=== PATIENT | female | born 1945 | race Hispanic/Latino ===

== ENCOUNTER 2019-02-25 20:20 | Inpatient (IN) | payer MEDICARE ==
[~2019-02-25] VITALS: Ht 160 cm; Wt 82.6 kg
[2019-02-25] MEDS ORDERED: ASPIRIN 325MG EC TAB 325 MG TABLET.DR PO ONE (20:32)
[2019-02-25] MEDS ORDERED: FAMOTIDINE 20MG TAB 20 MG TAB ONE (21:19)
[2019-02-25 21:34] LABS: BASOPHILS % (AUTO) 1.1 % (0.0-5.0); HEMATOCRIT 37.4 % (36-48); LYMPHOCYTES % (AUTO) 28.6 % (21.0-51.0); MEAN CORPUSCULAR HEMOGLOBIN 33.9 pg (27.0-33.0); MEAN CORPUSCULAR HGB CONC 34.6 g/dL (32.0-36.0); MONOCYTES % (AUTO) 6.5 % (3.0-13.0); NEUTROPHILS % (AUTO) 60.8 % (40.0-77.0); PLATELET COUNT (AUTO) 178 K/uL (130-400); RED BLOOD CELL COUNT(AUTO) 3.82 MIL/uL (4.00-5.50); RED CELL DISTRIBUTION WIDTH 13.2 % (11.0-15.5); WHITE BLOOD COUNT (AUTO) 7.8 K/uL (4.8-10.8)
[2019-02-25 21:45] LABS: CREATININE 0.9 mg/dL (0.5-1.5)
[2019-02-25 21:49] LABS: ALBUMIN 3.4 g/dL (3.5-5.0); BILIRUBIN,TOTAL 0.3 mg/dL (0.2-1.0); TOTAL PROTEIN, SERUM 7.2 g/dL (6.0-8.3)
[2019-02-25 23:09] LABS: HEMOGLOBIN A1C 5.9 % (4.0-6.0)
[2019-02-25 23:10] LABS: CHOLESTEROL 326 mg/dL (<200); HDL CHOLESTEROL 36 mg/dL (35-85); LDL DIRECT 192 mg/dL (0-99); TRIGLYCERIDES 362 mg/dL (30-200)
[2019-02-25] MEDS ORDERED: HYDRALAZINE HCL 20 MG/ML VIAL IV PRN (23:30)
[2019-02-25] MEDS: NITROGLYCERIN 1GM/1 INCH PACKET TD SCH (23:30)
[2019-02-26] VITALS (7 sets, daily range): BP systolic 131–158; BP diastolic 72–85
--- NOTE | 2019-02-26 00:55 | NUR ---
ADMISSION NOTE: ADMITTED TO FLOOR VIA STRETCHER FROM ER. AOX4. VERY COOPERATIVE AND RESPONSIVE. DENIES FEELING OF DISCOMFORT AT THIS TIME. PLACED IN BED COMFORTABLY. ADVISED TO BE ON BR WITH BRP. VS CHECKED AND RECORDED. ASSESSMENT DONE.( SEE CPOE FLOW CHART FOR FULL ASSESSMENT) . DAUGHTER AND SON WAS WITH THE PT. ORIENTED TO ROOM AND USE OF CALL LIGHT. POLICIES AND PROCEDURES EXPLAINED. VERBALIZED UNDERSTANDING. PLAN OF CARE INITIATED. MAINTAINED ON NPO ORDERED. HOOKED TO TELE WITH SR RESULT. FOR CARDIO CONSULT IN AM. MONITORED AND OBSERVED FOR ANY UNUSUALITIES. NEEDS ATTENDED AND CARED FOR. NO APPARENT DISTRESS NOTED.
[2019-02-26] MEDS ORDERED: LOSA50TA64 PO (01:19)
[2019-02-26 05:23] LABS: BASOPHILS % (AUTO) 0.7 % (0.0-5.0); EOSINOPHILS % (AUTO) 2.8 % (0.0-8.0); HEMATOCRIT 38.6 % (36-48); LYMPHOCYTES % (AUTO) 38.3 % (21.0-51.0); MEAN CORPUSCULAR HEMOGLOBIN 33.4 pg (27.0-33.0); MEAN CORPUSCULAR HGB CONC 33.8 g/dL (32.0-36.0); MEAN CORPUSCULAR VOLUME 98.9 fL (79-99); MONOCYTES % (AUTO) 7.6 % (3.0-13.0); NEUTROPHILS % (AUTO) 50.6 % (40.0-77.0); NUCLEATED RED BLOOD CELLS 0.1 % (0.0-0.19); PLATELET COUNT (AUTO) 178 K/uL (130-400); WHITE BLOOD COUNT (AUTO) 7.1 K/uL (4.8-10.8)
[2019-02-26 05:40] LABS: CREATININE 0.7 mg/dL (0.5-1.5); POTASSIUM 3.7 mmol/L (3.5-5.1)
[2019-02-26 05:41] LABS: ALBUMIN 3.4 g/dL (3.5-5.0); BILIRUBIN,TOTAL 0.4 mg/dL (0.2-1.0); TOTAL PROTEIN, SERUM 7.2 g/dL (6.0-8.3)
[2019-02-26] MEDS: NITROGLYCERIN 1GM/1 INCH PACKET TD SCH ×3 (06:32→23:37)
[2019-02-26] MEDS: ASPIRIN 81MG TAB.CHEW PO SCH (08:32)
[2019-02-26] MEDS: FAMOTIDINE/PF 20 MG/2 ML VIAL IV SCH ×2 (08:32→21:14)
[2019-02-26] MEDS: ENOXAPARIN SODIUM 30 MG/0.3 ML SQ SCH (08:33)
[2019-02-26] MEDS ORDERED: ACETAMINOPHEN EXTRA STRENGTH 500 MG TABLET PO PRN (10:15)
[2019-02-26] MEDS ORDERED: ONDANSETRON HCL 4 MG/2 ML VIAL IVP PRN (10:15)
[2019-02-26] MEDS ORDERED: MORPHINE SULFATE 2 MG/ML 1ML SYG IV PRN (10:15)
--- NOTE | 2019-02-26 14:43 | NUR ---
DCP CM met with pt discussed dc plans. Pt is independent prior to admission, lives at home w/daughter. Denies any equipments/services. Feels safe to go back home, daughter able to assist with transportation and neds as necessary. Dc plan to home once stable. CM to cont to follow up. Addendum: 02/26/19 at 1444 by TAMAR MONTERROSO LVN CM Amended: Links added.
--- NOTE | 2019-02-26 15:55 | NUR ---
NITRO PATCH PATIENT REFUSED NITRO PATCH, PATIENT HAS NO CURRENT COMPLAINT OF CHEST PAIN AND PATCH WAS CAUSING HEADACHE. SPOKE WITH DIALYSIS CLINICAL MANAGER MARCUS DANG REGARDING PATCH AND STATED IT WAS OK SINCE SHE HAS NO CHEST PAIN AT THIS TIME.
[2019-02-26] MEDS ORDERED: METOPROLOL TARTRATE 25 MG TAB PO SCH (21:00)
[2019-02-26] MEDS ORDERED: ATORVASTATIN CALCIUM 20 MG TABLET PO SCH (21:00)
[2019-02-27] VITALS (13 sets, daily range): BP systolic 111–159; BP diastolic 63–87
[2019-02-27 04:44] LABS: TROPONIN I 0.06 ng/mL (0.00-0.06)
[2019-02-27] MEDS: NITROGLYCERIN 1GM/1 INCH PACKET TD SCH ×2 (07:45→16:23)
[2019-02-27 08:57] LABS: INR 0.96 (0.85-1.15); PARTIAL THROMBOPLASTIN TIME 24.2 SEC (26.3-35.5); PROTHROMBIN TIME 10.1 SEC (9.6-11.6)
[2019-02-27] MEDS: ASPIRIN 81MG TAB.CHEW PO SCH (09:00)
[2019-02-27] MEDS ORDERED: LOSARTAN 50 MG TABLET PO SCH (09:00)
[2019-02-27] MEDS: ENOXAPARIN SODIUM 30 MG/0.3 ML SQ SCH (09:00)
[2019-02-27] MEDS: METOPROLOL TARTRATE 25 MG TAB PO SCH ×2 (09:00→21:20)
[2019-02-27] MEDS: FAMOTIDINE/PF 20 MG/2 ML VIAL IV SCH ×2 (09:00→21:20)
[2019-02-27] MEDS ORDERED: HEPARIN SODIUM 1000UNIT/ML 10ML VIAL ONE (12:09)
[2019-02-27] MEDS ORDERED: SODIUM BICARB 50MEQ 50ML VIAL ONE (12:09)
[2019-02-27] MEDS ORDERED: LIDOCAINE HCL 2% 20ML ONE (12:10)
[2019-02-27] MEDS ORDERED: NITROGLYCERIN 5 MG/ML 10 ML VIAL IV ONE (12:10)
[2019-02-27] MEDS ORDERED: IOHEXOL 350 MG/ML 100ML INFUS..BTL IV ONE (12:10)
[2019-02-27] MEDS ORDERED: IOHEXOL-350 50ML VIAL IV ONE (12:10)
--- NOTE | 2019-02-27 12:19 | NUR ---
Pt taken down for a LHC at this time, Consent signed, Pt VS stable, Nursing will continue to monitor.
[2019-02-27] MEDS ORDERED: MEPERIDINE-PF 25 MG/ML SYG ONE (12:27)
[2019-02-27] MEDS ORDERED: MIDAZOLAM HCL 1 MG/ML 2ML VIAL ONE (12:28)
[2019-02-27] MEDS ORDERED: LABETALOL HCL 5 MG/ML 20ML VIAL IV ONE (12:43)
[2019-02-27] MEDS ORDERED: ATROPINE SULFATE 0.1 MG/ML 10 ML SYG IVP ONE (12:56)
[2019-02-27] MEDS ORDERED: IOHEXOL-350 75 ML VIAL IV ONE (13:49)
[2019-02-27] MEDS ORDERED: SODIUM CHLORIDE 0.9% 1000ML 1,000 ML IV SCH (14:25)
--- NOTE | 2019-02-27 14:38 | NUR ---
Pt s/p LHC, transfer to post heart cath for appropriate care in room 224. Care endorsed to primary nurse.
[2019-02-27] MEDS ORDERED: ATORVASTATIN CALCIUM 40 MG TABLET PO SCH (21:00)
[2019-02-27] MEDS ORDERED: CEFAZOLIN SODIUM 1 GM VIAL IVP PRN (21:45)
[2019-02-28] VITALS (26 sets, daily range): BP systolic 96–229; BP diastolic 52–118
[2019-02-28] MEDS: NITROGLYCERIN 1GM/1 INCH PACKET TD SCH ×2 (00:12→07:30)
[2019-02-28 03:49] LABS: HEMATOCRIT 35.9 % (36-48); MEAN CORPUSCULAR HEMOGLOBIN 33.8 pg (27.0-33.0); MEAN CORPUSCULAR HGB CONC 34.6 g/dL (32.0-36.0); MEAN CORPUSCULAR VOLUME 97.6 fL (79-99); PLATELET COUNT (AUTO) 177 K/uL (130-400); RED BLOOD CELL COUNT(AUTO) 3.67 MIL/uL (4.00-5.50); WHITE BLOOD COUNT (AUTO) 7.7 K/uL (4.8-10.8)
[2019-02-28 04:04] LABS: HEMOGLOBIN A1C 5.9 % (4.0-6.0)
[2019-02-28 04:05] LABS: INR 0.93 (0.85-1.15); PARTIAL THROMBOPLASTIN TIME 23.9 SEC (26.3-35.5); PROTHROMBIN TIME 9.8 SEC (9.6-11.6)
[2019-02-28 04:13] LABS: CREATININE 0.9 mg/dL (0.5-1.5); POTASSIUM 3.8 mmol/L (3.5-5.1)
[2019-02-28 04:16] LABS: B-TYPE NATRIURETIC PEPTIDE 10 pg/mL (0-100)
--- NOTE | 2019-02-28 07:30 | NUR ---
AM ASSESSMENT PT LAYING IN BED, HOB ELEVATED 30 DEGREES, RESTING. FAMILY @ BEDSIDE. A/O X 3. NO SOB. NO DISTRESS NOTED. DENIES CHEST PAIN OR DISCOMFORT. DENIES PALPITATIONS. TELE: 80s. DENIES N/V AND/OR DIARRHEA. NPO STATUS REINFORCED. PT TO HAVE CABG TODAY. INSTRUCTED TO CALL FOR ASSISTANCE. CALL LEATHA W/IN REACH.
[2019-02-28] MEDS: METOPROLOL TARTRATE 25 MG TAB PO SCH (08:01)
[2019-02-28] MEDS: FAMOTIDINE/PF 20 MG/2 ML VIAL IV SCH ×2 (08:01→22:32)
[2019-02-28] MEDS: ASPIRIN 81MG TAB.CHEW PO SCH (08:01)
[2019-02-28] MEDS ORDERED: REGADENOSON 0.4 MG/5 ML PF SYG IVP SCH (08:30)
[2019-02-28] MEDS ORDERED: AMINOCAPROIC ACID 250 MG/ML 20 ML VIAL IV ONE (11:53)
[2019-02-28] MEDS ORDERED: ESMOLOL HCL 10 MG/ML 10 ML VIAL ONE (11:53)
[2019-02-28] MEDS ORDERED: SODIUM BICARB 50MEQ 50ML VIAL ONE (11:53)
[2019-02-28] MEDS ORDERED: PROPOFOL 10 MG/ML 20ML VIAL IV ONE (11:53)
[2019-02-28] MEDS ORDERED: PROTAMINE SULFATE 10 MG/ML 25ML VIAL IV ONE (11:53)
[2019-02-28] MEDS ORDERED: EPINEPHRINE 1 MG/ML AMPULE ONE (11:53)
[2019-02-28] MEDS ORDERED: LIDOCAINE PF 2% 5ML ABBOJECT ONE (11:53)
[2019-02-28] MEDS ORDERED: NOREPINEPHRINE BITARTRATE 1 MG/1 ML ML IV ONE (11:53)
[2019-02-28] MEDS ORDERED: HEPARIN SODIUM 1000UNIT/ML 10ML VIAL ONE ×2 (11:53→15:28)
[2019-02-28] MEDS ORDERED: MIDAZOLAM HCL 1 MG/ML 2ML VIAL ONE (11:53)
[2019-02-28] MEDS ORDERED: ROCURONIUM 10MG/1ML SYR 10 MG/ML ML ONE (11:54)
[2019-02-28] MEDS ORDERED: FENTANYL CITRATE PF 50 MCG/1 ML 5ML AMP IV ONE (11:58)
[2019-02-28] MEDS ORDERED: NITROGLYCERIN 50 MG/D5% WATER 1 BOT ONE (14:18)
--- NOTE | 2019-02-28 14:49 | NUR ---
STATUS PT TAKEN TO SX FOR CABG VIA BED. FAMILY @ BEDSIDE. TELE RADHA REMOVED.
[2019-02-28] MEDS ORDERED: CEFAZOLIN SODIUM 1 GM VIAL ONE (15:08)
[2019-02-28] MEDS ORDERED: SUFENTANIL CITRATE 50 MCG/ML 1ML AMP ONE (15:31)
[2019-02-28] MEDS ORDERED: OCTYL 2-CYANOACRYLATE 1 EACH TP ONE (15:34)
[2019-02-28] MEDS ORDERED: BACITRACIN 50,000 UNIT VIAL ONE (15:35)
[2019-02-28] MEDS ORDERED: PAPAVERINE HCL 30 MG/ML 2ML VIAL ONE (15:35)
[2019-02-28 15:47] LABS: ABG BASE EXCESS -2.7 mmol/L (-2.0-3.0); ABG HCO3 21.5 mmol/L (21.0-28.0); ABG OXYGEN SATURATION 99.3 % (95.0-99.0); ABG PCO2 36 mmHg (32-45)
[2019-02-28] MEDS ORDERED: AMIODARONE HCL 50 MG/ML 3 ML VIAL ONE (16:47)
[2019-02-28] MEDS ORDERED: SODIUM CHLORIDE 0.9% 500ML 500 ML IV SCH (17:32)
[2019-02-28] MEDS ORDERED: SODIUM CHLORIDE 0.9% 1000ML 1,000 ML IV ONE (17:44)
[2019-02-28] MEDS ORDERED: SODIUM CHLORIDE 0.9% 10 ML VIAL IVP PRN (17:45)
[2019-02-28] MEDS ORDERED: ACETAMINOPHEN 325 MG TAB PO PRN (17:45)
[2019-02-28] MEDS ORDERED: ALBUMIN (HUMAN) 5% 250 ML IV PRN (17:45)
[2019-02-28] MEDS ORDERED: EPINEPHRINE 2 MG in DEXTROSE 5%-WATER 250 ML IV PRN (17:45)
[2019-02-28] MEDS ORDERED: NITROGLYCERIN 50 MG/D5% WATER 250 BOT IV SCH (17:45)
[2019-02-28] MEDS ORDERED: SODIUM CHLORIDE 0.9% 250 ML IV PRN (17:45)
[2019-02-28] MEDS ORDERED: TRAMADOL HCL 50 MG TABLET PO PRN (17:45)
[2019-02-28] MEDS ORDERED: MORPHINE SULFATE 4 MG/1ML SYG IV PRN (17:45)
[2019-02-28] MEDS ORDERED: DEXTROSE 50%-WATER 50 ML DISP.SYRIN IV PRN (17:45)
[2019-02-28] MEDS ORDERED: ACETAMINOPHEN 650 MG SUPPOSITORY RC PRN (17:45)
[2019-02-28] MEDS ORDERED: MAGNESIUM 2GM PREMIX 50ML 50 ML IV PRN (17:45)
[2019-02-28] MEDS ORDERED: SODIUM CHLORIDE 0.9% 1000ML 1,000 ML IV SCH (17:45)
[2019-02-28] MEDS ORDERED: AMINOCAPROIC ACID 15,000 MG in SODIUM CHLORIDE 0.9% 250 ML IV SCH (17:45)
[2019-02-28] MEDS ORDERED: INSULIN REGULAR, HUMAN 3ML 100 UNIT in SODIUM CHLORIDE 0.9% 99 ML IV SCH ×2 (17:45)
[2019-02-28] MEDS ORDERED: MORPHINE SULFATE 2 MG/ML 1ML SYG IV PRN (17:45)
[2019-02-28] MEDS ORDERED: PROPOFOL 1000 MG/100 ML 100 ML IV PRN (17:45)
[2019-02-28] MEDS ORDERED: NOREPINEPHRINE 4MG/NS 250ML 250 ML IV PRN (17:45)
[2019-02-28] MEDS ORDERED: POTASSIUM PHOS 15 mMOL+NS250ML 250 ML IV PRN (17:45)
[2019-02-28] MEDS ORDERED: CALCIUM GLUCONATE 1 GM in SODIUM CHLORIDE 0.9% 50 ML IV PRN (17:45)
[2019-02-28] MEDS ORDERED: GLUCAGON 1MG KIT 1 MG ML IM PRN (17:45)
[2019-02-28 17:59] LABS: ABG BASE EXCESS -5.5 mmol/L (-2.0-3.0); ABG HCO3 19.8 mmol/L (21.0-28.0); ABG OXYGEN SATURATION 98.9 % (95.0-99.0); ABG PCO2 38 mmHg (32-45)
[2019-02-28] MEDS ORDERED: POTASSIUM CHLORIDE 20MEQ/100ML 100 ML IV ONE (18:14)
--- NOTE | 2019-02-28 18:33 | NUR ---
Received patient from [facility]. Patient with ET 7.0 at 20 cm. SIMV TV 600 Rate 12, Peep 5, PS 10, and FIO2 60%. Patient with mediastinal and left pleural chest tube at level 33. Patient on Epinephrine at .08 mcg/kg/min and Levophed at 8 mcg/min. Obrien with clear urine output.
[2019-02-28 18:49] LABS: ABG BASE EXCESS -6.8 mmol/L (-2.0-3.0); ABG HCO3 19.3 mmol/L (21.0-28.0); ABG OXYGEN SATURATION 96.3 % (95.0-99.0); ABG PCO2 41 mmHg (32-45)
[2019-02-28] MEDS: SODIUM BICARB 50MEQ 50ML VIAL IV PRN ×2 (18:54→22:30)
[2019-02-28 19:14] LABS: MEAN CORPUSCULAR HEMOGLOBIN 33.4 pg (27.0-33.0); MEAN CORPUSCULAR HGB CONC 33.2 g/dL (32.0-36.0); MEAN CORPUSCULAR VOLUME 100.6 fL (79-99); NUCLEATED RED BLOOD CELLS 0.1 % (0.0-0.19); PLATELET COUNT (AUTO) 148 K/uL (130-400); RED BLOOD CELL COUNT(AUTO) 3.28 MIL/uL (4.00-5.50); RED CELL DISTRIBUTION WIDTH 12.9 % (11.0-15.5)
[2019-02-28 19:18] LABS: WHITE BLOOD COUNT (AUTO) 31.2 K/uL (4.8-10.8)
[2019-02-28 19:23] LABS: CREATININE 0.9 mg/dL (0.5-1.5); MAGNESIUM 1.3 mg/dL (1.80-2.40); PHOSPHORUS 4.7 mg/dL (2.5-4.9); POTASSIUM 3.7 mmol/L (3.5-5.1)
[2019-02-28 19:24] LABS: INR 1.09 (0.85-1.15); PARTIAL THROMBOPLASTIN TIME 20.8 SEC (26.3-35.5); PROTHROMBIN TIME 11.4 SEC (9.6-11.6)
[2019-02-28 19:46] LABS: BAND NEUTROPHILS % (MANUAL) 9 % (0-2); LYMPHOCYTES % (MANUAL) 10 % (22-44); MAN.DIFF COMMENT-IMPRESSION MANUAL DIFFERENTIAL; MONOCYTES % (MANUAL) 5 % (2-9); REACTIVE LYMPHOCYTES 2 % (0-0); SEGMENTED NEUTROPHILS % 74 % (40-70)
[2019-02-28 20:06] LABS: ABG BASE EXCESS 0.5 mmol/L (-2.0-3.0); ABG HCO3 24.6 mmol/L (21.0-28.0); ABG PCO2 38 mmHg (32-45)
[2019-02-28 21:57] LABS: ABG BASE EXCESS -1.7 mmol/L (-2.0-3.0); ABG HCO3 22.9 mmol/L (21.0-28.0); ABG OXYGEN SATURATION 98.6 % (95.0-99.0); ABG PCO2 39 mmHg (32-45)
[2019-02-28] MEDS: CEFAZOLIN SODIUM 1 GM VIAL IV SCH (22:32)
[2019-02-28] MEDS: POTASSIUM CHLORIDE 20MEQ/100ML 100 ML IV PRN (22:35)
[2019-02-28] MEDS: ONDANSETRON HCL 4 MG/2 ML VIAL IV PRN (23:02)
[2019-02-28 23:07] LABS: ABG BASE EXCESS -0.8 mmol/L (-2.0-3.0); ABG HCO3 24.7 mmol/L (21.0-28.0); ABG OXYGEN SATURATION 95.9 % (95.0-99.0); ABG PCO2 45 mmHg (32-45)
[2019-03-01] VITALS (33 sets, daily range): BP systolic 68–171; BP diastolic 39–107
[2019-03-01 00:52] LABS: ABG BASE EXCESS -0.2 mmol/L (-2.0-3.0); ABG HCO3 25.4 mmol/L (21.0-28.0); ABG OXYGEN SATURATION 96.6 % (95.0-99.0); ABG PCO2 45 mmHg (32-45)
[2019-03-01 04:30] LABS: ABG BASE EXCESS 1.8 mmol/L (-2.0-3.0); ABG OXYGEN SATURATION 96.2 % (95.0-99.0); ABG PCO2 50 mmHg (32-45)
[2019-03-01 04:32] LABS: HEMATOCRIT 31.6 % (36-48); MEAN CORPUSCULAR HEMOGLOBIN 33.5 pg (27.0-33.0); MEAN CORPUSCULAR HGB CONC 34.3 g/dL (32.0-36.0); MEAN CORPUSCULAR VOLUME 97.9 fL (79-99); PLATELET COUNT (AUTO) 136 K/uL (130-400); RED BLOOD CELL COUNT(AUTO) 3.23 MIL/uL (4.00-5.50); RED CELL DISTRIBUTION WIDTH 13.1 % (11.0-15.5); WHITE BLOOD COUNT (AUTO) 19.9 K/uL (4.8-10.8)
[2019-03-01 04:44] LABS: INR 0.98 (0.85-1.15); PARTIAL THROMBOPLASTIN TIME 21.4 SEC (26.3-35.5); PROTHROMBIN TIME 10.3 SEC (9.6-11.6)
[2019-03-01 04:58] LABS: PHOSPHORUS 4.1 mg/dL (2.5-4.9); POTASSIUM 4.1 mmol/L (3.5-5.1)
[2019-03-01] MEDS ORDERED: CALCIUM GLUCONATE 1 GM/10 ML VIAL IV ONE (05:52)
[2019-03-01] MEDS: CEFAZOLIN SODIUM 1 GM VIAL IV SCH ×2 (06:11→13:26)
[2019-03-01] MEDS: ONDANSETRON HCL 4 MG/2 ML VIAL IV PRN ×2 (06:31→13:25)
[2019-03-01] MEDS: TRAMADOL HCL 50 MG TABLET PO PRN ×2 (06:39→13:24)
[2019-03-01] MEDS: METOPROLOL TARTRATE 25 MG TAB PO SCH ×2 (09:41→21:08)
[2019-03-01] MEDS: FAMOTIDINE/PF 20 MG/2 ML VIAL IV SCH (09:41)
[2019-03-01] MEDS: ASPIRIN 81 MG EC TAB PO SCH (09:41)
--- NOTE | 2019-03-01 19:00 | NUR ---
Received bedside report pt is sitting up on cardiac recliner,on insulin drip with chest tube in place..Family to bedside.Pt. denies any discomfort.Pt instructed to use call light for assistance and she demonstrated understanding.
[2019-03-01] MEDS: ATORVASTATIN CALCIUM 40 MG TABLET PO SCH (21:08)
[2019-03-01] MEDS: FAMOTIDINE 20MG TAB 20 MG TAB PO SCH (21:08)
[2019-03-02] VITALS (17 sets, daily range): BP systolic 105–142; BP diastolic 45–83
[2019-03-02 04:18] LABS: HEMATOCRIT 27.4 % (36-48); MEAN CORPUSCULAR HGB CONC 33.9 g/dL (32.0-36.0); MEAN CORPUSCULAR VOLUME 100.3 fL (79-99); PLATELET COUNT (AUTO) 103 K/uL (130-400); RED BLOOD CELL COUNT(AUTO) 2.73 MIL/uL (4.00-5.50); RED CELL DISTRIBUTION WIDTH 12.9 % (11.0-15.5); WHITE BLOOD COUNT (AUTO) 16.2 K/uL (4.8-10.8)
[2019-03-02 04:26] LABS: CREATININE 0.8 mg/dL (0.5-1.5); POTASSIUM 3.7 mmol/L (3.5-5.1)
[2019-03-02] MEDS: FAMOTIDINE 20MG TAB 20 MG TAB PO SCH ×2 (09:20→21:27)
[2019-03-02] MEDS: METOPROLOL TARTRATE 25 MG TAB PO SCH ×2 (09:20→21:28)
[2019-03-02] MEDS: ASPIRIN 81 MG EC TAB PO SCH (09:20)
--- NOTE | 2019-03-02 19:00 | NUR ---
Assumed care at 1900. Patient up to chair. No complaints of pain or discomfort reported. Patient in no apparent distress. Will continue to monitor. Please see physical assessment for further detail.
[2019-03-02] MEDS: FUROSEMIDE 20 MG TABLET PO SCH (21:28)
[2019-03-02] MEDS: ATORVASTATIN CALCIUM 40 MG TABLET PO SCH (21:28)
[2019-03-02] MEDS: POTASSIUM CHLORIDE 20MEQ/100ML 100 ML IV PRN (21:29)
[2019-03-02] MEDS: TRAMADOL HCL 50 MG TABLET PO PRN (21:31)
[2019-03-03] VITALS (16 sets, daily range): BP systolic 108–129; BP diastolic 26–66
[2019-03-03 04:00] LABS: HEMATOCRIT 27.7 % (36-48); MEAN CORPUSCULAR HEMOGLOBIN 33.8 pg (27.0-33.0); MEAN CORPUSCULAR HGB CONC 34.1 g/dL (32.0-36.0); MEAN CORPUSCULAR VOLUME 99.1 fL (79-99); PLATELET COUNT (AUTO) 107 K/uL (130-400); WHITE BLOOD COUNT (AUTO) 12.8 K/uL (4.8-10.8)
--- NOTE | 2019-03-03 04:00 | NUR ---
Chest tubes and urinary catheter discontinued at this time. Patient tolerated well. Patient informed of expected voiding time. Patient verbalized understanding. Will continue to monitor.
[2019-03-03 04:19] LABS: CREATININE 0.7 mg/dL (0.5-1.5); POTASSIUM 3.9 mmol/L (3.5-5.1)
[2019-03-03] MEDS: POTASSIUM CHLORIDE 20MEQ/100ML 100 ML IV PRN ×2 (04:44→10:51)
[2019-03-03] MEDS: FAMOTIDINE 20MG TAB 20 MG TAB PO SCH ×2 (08:43→21:07)
[2019-03-03] MEDS: METOPROLOL TARTRATE 25 MG TAB PO SCH ×2 (08:43→21:07)
[2019-03-03] MEDS: FUROSEMIDE 20 MG TABLET PO SCH ×2 (08:43→17:25)
[2019-03-03] MEDS: ASPIRIN 81 MG EC TAB PO SCH (08:43)
[2019-03-03 10:30] LABS: POTASSIUM 3.8 mmol/L (3.5-5.1)
[2019-03-03] MEDS: ATORVASTATIN CALCIUM 40 MG TABLET PO SCH (21:07)
[2019-03-03] MEDS: TRAMADOL HCL 50 MG TABLET PO PRN (21:08)
--- NOTE | 2019-03-03 22:37 | NUR ---
Assumed care at 1900. Patient continues to be stable and doing well. Patient is able to tolerate ambulation and registering 750mL on IS. Minor pain reported. Patient was repositioned wit no relief of pain. Pain medication administered at approximately 2115. Reassessed an hour later with no complaints of pain. Patient currently resting comfortably. Will continue to monitor.
[2019-03-04 03:25] LABS: MEAN CORPUSCULAR HEMOGLOBIN 33.8 pg (27.0-33.0); MEAN CORPUSCULAR HGB CONC 34.5 g/dL (32.0-36.0); MEAN CORPUSCULAR VOLUME 98.1 fL (79-99); PLATELET COUNT (AUTO) 128 K/uL (130-400); RED BLOOD CELL COUNT(AUTO) 2.86 MIL/uL (4.00-5.50); RED CELL DISTRIBUTION WIDTH 12.7 % (11.0-15.5); WHITE BLOOD COUNT (AUTO) 10.8 K/uL (4.8-10.8)
[2019-03-04 03:44] LABS: CREATININE 0.7 mg/dL (0.5-1.5); POTASSIUM 3.6 mmol/L (3.5-5.1)
[2019-03-04 04:00] VITALS: BP 123/68
[2019-03-04 07:00] VITALS: BP 138/66
--- NOTE | 2019-03-04 07:00 | NUR ---
RECEIVE REPORT FROM LALA SIFUENTES.
--- NOTE | 2019-03-04 07:45 | NUR ---
DR. Jules LOVE IN TO SEE PATIENT, UPDATE GIVEN. NO NEW ORDERS.
--- NOTE | 2019-03-04 08:30 | NUR ---
PATIENT HAD BREAKFAST MEAL AND ATE 100%. GIVEN SCHEDULED MEDICATIONS. TOLERATED WELL. GLUER READING SR HR 93. OFF O2--O2 SAT 89-91%. PATIENT WITH HISTORY OF COPD. ENCOURAGED DEEP BREATHING AND INCENTIVE SPIROMETRY. VERBALIZED UNDERSTANDING. WILL CONTINUE TO MONITOR.
[2019-03-04] MEDS: FAMOTIDINE 20MG TAB 20 MG TAB PO SCH ×2 (08:38→21:03)
[2019-03-04] MEDS: FUROSEMIDE 20 MG TABLET PO SCH ×2 (08:38→18:03)
[2019-03-04] MEDS: ASPIRIN 81 MG EC TAB PO SCH (08:38)
[2019-03-04] MEDS: METOPROLOL TARTRATE 25 MG TAB PO SCH ×2 (08:39→21:03)
[2019-03-04 11:00] VITALS: BP 126/61
[2019-03-04 15:00] VITALS: BP 123/57
--- NOTE | 2019-03-04 17:03 | NUR ---
[facility] Screen - LOS x7Days Pt admitted for Chest Pain. Pt s/p Left Heart catheterization, CAD, s/p CABG x3. Pt tolerating current Heart Healthy diet on visit with no report of GI distress. Pt, however with poor PO intake due to decreased appetite;Recommend Ensure with each meal, Pt agrees. Pt LBM 03/03. Pt monitored labs: CO2 34, Ca 8.2, Alb 3.4. RD to continue to monitor. Please notify [facility] as additional nutrition concerns arise. Thank you. Addendum: 03/04/19 at [address] Amended: Links added.
--- NOTE | 2019-03-04 19:00 | NUR ---
Assumed care at 1900. Patient in chair in no visible distress. No pain reported. Please see assessment for further detail. Will continue to monitor.
[2019-03-04 19:46] VITALS: BP 155/77
[2019-03-04] MEDS: ATORVASTATIN CALCIUM 40 MG TABLET PO SCH (21:03)
[2019-03-04] MEDS: TRAMADOL HCL 50 MG TABLET PO PRN (21:04)
[2019-03-04 23:59] VITALS: BP 107/51
[2019-03-05 03:47] LABS: HEMATOCRIT 26.9 % (36-48); MEAN CORPUSCULAR HGB CONC 34.7 g/dL (32.0-36.0); NUCLEATED RED BLOOD CELLS 0.1 % (0.0-0.19); PLATELET COUNT (AUTO) 172 K/uL (130-400); RED BLOOD CELL COUNT(AUTO) 2.75 MIL/uL (4.00-5.50); RED CELL DISTRIBUTION WIDTH 12.9 % (11.0-15.5)
[2019-03-05 03:49] VITALS: BP 116/70
[2019-03-05 04:02] LABS: ALBUMIN 2.4 g/dL (3.5-5.0); BILIRUBIN,TOTAL 0.5 mg/dL (0.2-1.0); CREATININE 0.7 mg/dL (0.5-1.5); MAGNESIUM 1.9 mg/dL (1.80-2.40); PHOSPHORUS 3.7 mg/dL (2.5-4.9); POTASSIUM 3.4 mmol/L (3.5-5.1); TOTAL PROTEIN, SERUM 6.1 g/dL (6.0-8.3)
[2019-03-05 07:50] VITALS: BP 125/88
[2019-03-05] MEDS: FAMOTIDINE 20MG TAB 20 MG TAB PO SCH (09:41)
[2019-03-05] MEDS: ASPIRIN 81 MG EC TAB PO SCH (09:42)
[2019-03-05] MEDS: METOPROLOL TARTRATE 25 MG TAB PO SCH (09:42)
[2019-03-05] MEDS: FUROSEMIDE 20 MG TABLET PO SCH ×2 (09:42→17:16)
[2019-03-05] MEDS ORDERED: POTASSIUM CHLORIDE 10% ELIXIR 20 MEQ/15 ML UDCUP PO PRN (10:00)
[2019-03-05 11:39] VITALS: BP 139/83
[2019-03-05] MEDS: POTASSIUM CHLORIDE 20 MEQ ERTAB PO PRN ×2 (12:15→14:37)
[2019-03-05 16:20] VITALS: BP 124/66
[2019-03-05] MEDS ORDERED: AEC81 PO (17:15)
[2019-03-05] MEDS ORDERED: FURO20TA6 PO (17:15)
[2019-03-05] MEDS ORDERED: TRAM50TA4 PO (17:15)
[2019-03-05] MEDS ORDERED: METO25 PO (17:15)
[2019-03-05] MEDS ORDERED: ATOR40TA69 PO (17:15)
== END 2019-03-05 18:30 | disposition home or self-care (01) | DRG 232 ==
LOC: EDH 20:20 → EDHIP 23:04 → 3DH 23:50 → 2DH 02-27 14:58 → 2CV 02-28 15:52 → 2BH 03-01 05:11 → 2CH 03-05 04:11
PROVIDERS: ADMIT Internal Medicine; ATTEND Internal Medicine
PROC: 4A023N7 Measurement of Cardiac Sampling and Pressure, Left Heart, Percutaneous Approach (ICD-10-PCS; principal; 2019-02-27)
PROC: 02703ZZ Dilation of Coronary Artery, One Artery, Percutaneous Approach (ICD-10-PCS; 2019-02-27)
PROC: B2111ZZ Fluoroscopy of Multiple Coronary Arteries using Low Osmolar Contrast (ICD-10-PCS; 2019-02-27)
PROC: B2151ZZ Fluoroscopy of Left Heart using Low Osmolar Contrast (ICD-10-PCS; 2019-02-27)
PROC: 02100Z9 Bypass Coronary Artery, One Artery from Left Internal Mammary, Open Approach (ICD-10-PCS; 2019-02-28)
PROC: 021109W Bypass Coronary Artery, Two Arteries from Aorta with Autologous Venous Tissue, Open Approach (ICD-10-PCS; 2019-02-28)
PROC: 06BQ4ZZ Excision of Left Saphenous Vein, Percutaneous Endoscopic Approach (ICD-10-PCS; 2019-02-28)
PROC: 02HV33Z Insertion of Infusion Device into Superior Vena Cava, Percutaneous Approach (ICD-10-PCS; 2019-02-28)
DX: I25.110 Atherosclerotic heart disease of native coronary artery with unstable angina pectoris (principal); I10 Essential (primary) hypertension; E78.00 Pure hypercholesterolemia, unspecified; E78.5 Hyperlipidemia, unspecified; I73.9 Peripheral vascular disease, unspecified; R09.02 Hypoxemia; R06.89 Other abnormalities of breathing; D69.6 Thrombocytopenia, unspecified; F17.200 Nicotine dependence, unspecified, uncomplicated; E66.9 Obesity, unspecified; Z82.49 Family history of ischemic heart disease and other diseases of the circulatory system; Z71.6 Tobacco abuse counseling; Z79.82 Long term (current) use of aspirin; Z79.899 Other long term (current) drug therapy; Z68.32 Body mass index [BMI] 32.0-32.9, adult
CPT/HCPCS: 36415; 71045; 80048; 80053; 80061; 82330; 82435; 82550; 82803; 82947; 82948; 83036; 83605; 83690; 83735; 83874; 83880; 84100; 84132; 84295; 84443; 84484; 85018; 85025; 85027; 85060; 85347; 85610; 85730; 86850; 86900; 86901; 86922; 92920; 93005; 93306; 93458; 93880; 93925; 94002; 94010; 94150; 97039; 99156; 99157; A7048; C1725; C1760; C1769; C1887; C1894; G0378; J0171; J0282; J0461; J0610; J0690; J1644; J1650; J1815; J2001; J2175; J2250; J2270; J2405; J2440; J2704; J2720; J2785; J3010; J3475; J3480; J3490; J7030; J7040; P9045; Q9967

== ENCOUNTER → 2021-08-26 | Outpatient (CLI) | payer MEDICARE ==
[~2021-08-26] MED LIST: AEC81 PO; ATOR40TA69 PO; FURO20TA6 PO; METO25 PO; TRAM50TA4 PO
== END | disposition home or self-care (01) ==
LOC: SHCH 08:16
PROVIDERS: ATTEND Internal Medicine Cardiovascular Disease
DX: I70.293 Other atherosclerosis of native arteries of extremities, bilateral legs (principal); I25.10 Atherosclerotic heart disease of native coronary artery without angina pectoris
CPT/HCPCS: 93925

== ENCOUNTER 2022-06-06 12:51 | Emergency (ER) | payer MEDICARE ==
[~2022-06-06] VITALS: Ht 160 cm; Wt 83.9 kg
[2022-06-06 14:05] LABS: MEAN CORPUSCULAR HEMOGLOBIN 32.6 pg (27.0-33.0); MEAN CORPUSCULAR HGB CONC 32.9 g/dL (32.0-36.0); MEAN CORPUSCULAR VOLUME 99.2 fL (79-99); RED BLOOD CELL COUNT(AUTO) 3.83 MIL/uL (4.00-5.50); RED CELL DISTRIBUTION WIDTH 13.4 % (11.0-15.5); WHITE BLOOD COUNT (AUTO) 15.7 K/uL (4.8-10.8)
[2022-06-06 14:13] LABS: CREATININE 0.9 mg/dL (0.5-1.5); POTASSIUM 4.2 mmol/L (3.5-5.1)
[2022-06-06 14:18] LABS: ALBUMIN 3.4 g/dL (3.5-5.0); TOTAL PROTEIN, SERUM 7.3 g/dL (6.0-8.3)
[2022-06-06 14:35] LABS: APPEARANCE,URINE CLEAR (CLEAR); BILIRUBIN,URINE NEGATIVE (NEGATIVE); COLOR,URINE YELLOW (YELLOW); GLUCOSE, URINE (UA) NEGATIVE (NEGATIVE); KETONES,URINE NEGATIVE (NEGATIVE); LEUKOCYTE ESTERASE ,URINE NEGATIVE Leu/uL (NEGATIVE); NITRATE,URINE NEGATIVE (NEGATIVE); OCCULT BLOOD,URINE NEGATIVE (NEGATIVE); PROTEIN,URINE 10 mg/dL (NEGATIVE); UROBILINOGEN,URINE 0.2 mg/dL (0.2-1.0)
[2022-06-06 14:52] LABS: BACTERIA,URINE RARE /HPF (None Seen); MUCUS,URINE RARE LPF (None Seen); SQUAMOUS EPITHELIAL CELL,UR MOD /HPF (0-2)
[2022-06-06] MEDS ORDERED: HYDR28.32 TP (16:56)
[2022-06-06 17:39] VITALS: BP 163/80
== END 2022-06-06 17:40 | disposition home or self-care (01) ==
LOC: EDH 12:51
DX: N34.2 Other urethritis (principal); I10 Essential (primary) hypertension; Z79.82 Long term (current) use of aspirin; Z79.899 Other long term (current) drug therapy; Z95.1 Presence of aortocoronary bypass graft
CPT/HCPCS: 36415; 80053; 81001; 85027

== ENCOUNTER → 2023-03-14 | Outpatient (CLI) | payer MEDICARE ==
[~2023-03-14] MED LIST changes: +HYDR28.32 TP; +REGADENOSON 0.4 MG/5 ML PF SYG IVP ONE
== END | disposition home or self-care (01) ==
LOC: SHCH 07:45
PROVIDERS: ATTEND Internal Medicine Cardiovascular Disease
DX: I25.10 Atherosclerotic heart disease of native coronary artery without angina pectoris (principal)
CPT/HCPCS: 78452; 96374; 93017; J2785; A9500 ×2

== ENCOUNTER 2023-05-15 05:58 | Day surgery (SDC) | payer MEDICARE ==
[2023-05-11 12:12] LABS: APPEARANCE,URINE CLEAR (CLEAR); BILIRUBIN,URINE NEGATIVE (NEGATIVE); COLOR,URINE LIGHT-YELLOW (YELLOW); GLUCOSE, URINE (UA) NEGATIVE (NEGATIVE); KETONES,URINE NEGATIVE (NEGATIVE); LEUKOCYTE ESTERASE ,URINE 25 Leu/uL (NEGATIVE); NITRATE,URINE NEGATIVE (NEGATIVE); OCCULT BLOOD,URINE NEGATIVE (NEGATIVE); PROTEIN,URINE 10 mg/dL (NEGATIVE); UROBILINOGEN,URINE 0.2 mg/dL (0.2-1.0)
[2023-05-11 12:14] LABS: ADD UA MICROSCOPIC YES
[2023-05-11 12:16] LABS: BACTERIA,URINE RARE /HPF (None Seen); MUCUS,URINE RARE LPF (None Seen); RBC,URINE 0-1 /HPF (0-1); SQUAMOUS EPITHELIAL CELL,UR FEW /HPF (0-2)
[2023-05-11 12:18] LABS: BASOPHILS # (AUTO) 0.06 K/uL (0.00-0.20); BASOPHILS % (AUTO) 0.5 % (0.0-5.0); EOSINOPHILS # (AUTO) 0.29 K/uL (0.00-0.70); EOSINOPHILS % (AUTO) 2.3 % (0.0-8.0); HEMATOCRIT 41.7 % (36-48); IMMATURE GRANULOCYTE ABSOLUTE 0.07 K/uL (0-1); LYMPHOCYTES # (AUTO) 2.9 K/uL (1.0-4.8); LYMPHOCYTES % (AUTO) 23.5 % (21.0-51.0); MEAN CORPUSCULAR HEMOGLOBIN 31.8 pg (27.0-33.0); MEAN CORPUSCULAR HGB CONC 32.4 g/dL (32.0-36.0); MEAN CORPUSCULAR VOLUME 98.1 fL (79-99); MONOCYTES # (AUTO) 0.8 K/uL (0.1-1.0); MONOCYTES % (AUTO) 6.5 % (3.0-13.0); NEUTROPHILS # (AUTO) 8.3 K/uL (1.8-7.7); NEUTROPHILS % (AUTO) 66.6 % (40.0-77.0); PLATELET COUNT (AUTO) 236 K/uL (130-400); RED BLOOD CELL COUNT(AUTO) 4.25 MIL/uL (4.00-5.50); RED CELL DISTRIBUTION WIDTH 12.6 % (11.0-15.5); WHITE BLOOD COUNT (AUTO) 12.5 K/uL (4.8-10.8)
[2023-05-11 12:22] VITALS: BP 170/85; PULSE 82; RESP 16
[2023-05-11 12:33] LABS: INR < 0.93 (0.85-1.15)
[2023-05-11 12:34] LABS: PARTIAL THROMBOPLASTIN TIME 27.6 SEC (26.3-35.5)
[2023-05-11 12:41] LABS: CREATININE 0.7 mg/dL (0.5-1.5); POTASSIUM 4.1 mmol/L (3.5-5.1)
[2023-05-11 12:42] LABS: B-TYPE NATRIURETIC PEPTIDE 9 pg/mL (0-100)
[2023-05-15] VITALS (11 sets, daily range): BP systolic 112–187; BP diastolic 55–85; PULSE 69–90; RESP 16–20
[~2023-05-15] VITALS: Ht 157.5 cm; Wt 85.7 kg
[~2023-05-15 05:58] MED LIST changes: +AMLO2.5T4 PO; -ATOR40TA69 PO; -FURO20TA6 PO; -HYDR28.32 TP; -REGADENOSON 0.4 MG/5 ML PF SYG IVP ONE; +ROSU40TA21 PO; -TRAM50TA4 PO
[2023-05-15] MEDS ORDERED: 0.9%NACL 1000ML 1,000 ML IV ONE ×2 (07:02→07:35)
[2023-05-15] MEDS ORDERED: NITROGLYCERIN 50MG VIAL ONE (07:05)
[2023-05-15] MEDS ORDERED: SODIUM BICARB 50MEQ 50ML VIAL 50 ML ONE (07:05)
[2023-05-15] MEDS ORDERED: IOHEXOL-350 75 ML VIAL IV ONE ×2 (07:05→10:12)
[2023-05-15] MEDS ORDERED: MIDAZOLAM HCL 1 MG/ML 2ML VIAL ONE ×4 (07:05→10:31)
[2023-05-15] MEDS ORDERED: MEPERIDINE-PF 25 MG/ML SYG ONE ×2 (07:05→09:19)
[2023-05-15] MEDS ORDERED: LIDOCAINE HCL 400MG/20ML VIAL ONE (07:05)
[2023-05-15] MEDS ORDERED: IOHEXOL-350 50ML VIAL IV ONE (07:05)
[2023-05-15] MEDS ORDERED: HEPARIN 10,000 UNIT/10ML (1,000 UNIT/ML) VIAL ONE (07:06)
[2023-05-15] MEDS ORDERED: CLOPIDOGREL 300MG TAB ONE (10:44)
[2023-05-15] MEDS ORDERED: 0.9%NACL 1000ML 1,000 ML IV SCH (11:00)
== END 2023-05-15 17:17 | disposition home or self-care (01) ==
LOC: DAH 05:58
PROVIDERS: ATTEND Internal Medicine Cardiovascular Disease
DX: I25.118 Atherosclerotic heart disease of native coronary artery with other forms of angina pectoris (principal); I25.82 Chronic total occlusion of coronary artery; I25.719 Atherosclerosis of autologous vein coronary artery bypass graft(s) with unspecified angina pectoris; I10 Essential (primary) hypertension; I73.9 Peripheral vascular disease, unspecified; E78.5 Hyperlipidemia, unspecified; J44.9 Chronic obstructive pulmonary disease, unspecified; E66.9 Obesity, unspecified; Z79.82 Long term (current) use of aspirin; Z79.899 Other long term (current) drug therapy; Z98.890 Other specified postprocedural states; Z95.1 Presence of aortocoronary bypass graft; Z95.5 Presence of coronary angioplasty implant and graft; Z79.01 Long term (current) use of anticoagulants; Z68.34 Body mass index [BMI] 34.0-34.9, adult
CPT/HCPCS: 80048; 83880; 85025; 85610; 85730; 81001; 36415; 71045; 93005; 85347 ×2; 93459; C9600; C1887 ×3; C1769 ×4; C1894; C1874 ×2; C1760; C1725; J3490 ×3; J7030 ×2; J1644 ×3; J2250 ×3; J2175 ×2; Q9967 ×2; A4215; A4222; A4221; A4663; A4216; A4606; A4223 ×3; 96360; 96361; 99156; 99157

== ENCOUNTER 2024-07-12 09:30 | Emergency (ER) | payer MEDICARE ==
[~2024-07-12] VITALS: Ht 154.9 cm; Wt 83.9 kg
[~2024-07-12 09:30] MED LIST changes: -ROSU40TA21 PO; +ROSU40TA88 PO
[2024-07-12 09:34] VITALS: TEMP 98.8
[2024-07-12 09:53] LABS: APPEARANCE,URINE CLOUDY (CLEAR); BILIRUBIN,URINE NEGATIVE (NEGATIVE); COLOR,URINE YELLOW (YELLOW); GLUCOSE, URINE (UA) NEGATIVE (NEGATIVE); KETONES,URINE NEGATIVE (NEGATIVE); LEUKOCYTE ESTERASE ,URINE 500 Leu/uL (NEGATIVE); NITRATE,URINE NEGATIVE (NEGATIVE); OCCULT BLOOD,URINE NEGATIVE (NEGATIVE); PROTEIN,URINE 70 mg/dL (NEGATIVE); UROBILINOGEN,URINE 0.2 mg/dL (0.2-1.0)
[2024-07-12 09:55] LABS: ADD UA MICROSCOPIC YES
[2024-07-12 09:59] LABS: BACTERIA,URINE RARE /HPF (None Seen); MUCUS,URINE MOD LPF (None Seen); NON-SQUAMOUS EPITHELIAL CELL 2 /HPF (0-2); SQUAMOUS EPITHELIAL CELL,UR MANY /HPF (0-2); WBC,URINE 26-50 /HPF (0-1)
--- NOTE | 2024-07-12 09:59 | EKG ---
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
[2024-07-12 10:00] LABS: BASOPHILS # (AUTO) 0.06 K/uL (0.00-0.20); BASOPHILS % (AUTO) 0.5 % (0.0-5.0); EOSINOPHILS # (AUTO) 0.24 K/uL (0.00-0.70); EOSINOPHILS % (AUTO) 1.9 % (0.0-8.0); HEMATOCRIT 41.9 % (36-48); IMMATURE GRANULOCYTE ABSOLUTE 0.04 K/uL (0-1); LYMPHOCYTES # (AUTO) 4.5 K/uL (1.0-4.8); LYMPHOCYTES % (AUTO) 36.1 % (21.0-51.0); MEAN CORPUSCULAR HEMOGLOBIN 31.8 pg (27.0-33.0); MEAN CORPUSCULAR HGB CONC 32.9 g/dL (32.0-36.0); MEAN CORPUSCULAR VOLUME 96.5 fL (79-99); MONOCYTES # (AUTO) 0.7 K/uL (0.1-1.0); MONOCYTES % (AUTO) 5.5 % (3.0-13.0); NEUTROPHILS # (AUTO) 6.9 K/uL (1.8-7.7); NEUTROPHILS % (AUTO) 55.7 % (40.0-77.0); PLATELET COUNT (AUTO) 225 K/uL (130-400); RED BLOOD CELL COUNT(AUTO) 4.34 MIL/uL (4.00-5.50); RED CELL DISTRIBUTION WIDTH 12.4 % (11.0-15.5); WHITE BLOOD COUNT (AUTO) 12.4 K/uL (4.8-10.8)
--- NOTE | 2024-07-12 10:01 | HMCIMG ---
PORTABLE CHEST RADIOGRAPH INDICATION: CP COMPARISON: 05/11/2023 FINDINGS: Median sternotomy wires are in appropriate alignment. Heart size is normal. Mild calcific plaque is present along the aortic arch chavarria. The pulmonary vascularity and laly appear normal. No abnormal pulmonary parenchymal opacity or consolidation identified. No significant pleural effusion noted. No pneumothorax detected. IMPRESSION: No radiographic evidence for any acute cardiopulmonary process.
[2024-07-12 10:10] LABS: INR 0.95 (0.85-1.15); PROTHROMBIN TIME 10.1 SEC (9.6-11.6)
[2024-07-12 10:11] LABS: PARTIAL THROMBOPLASTIN TIME 21.7 SEC (26.3-35.5)
[2024-07-12 10:13] LABS: CREATININE 0.7 mg/dL (0.5-1.0); MAGNESIUM 2.2 mg/dL (1.80-2.40); POTASSIUM 3.9 mmol/L (3.5-5.1)
[2024-07-12 10:17] LABS: RAPID GROUP A STREP negative (NEGATIVE)
[2024-07-12 10:20] LABS: SARS-CoV-2, RNA, NAAT NEGATIVE SARS CoV-2 (NEGATIVE)
[2024-07-12 10:27] LABS: INFLUENZA TYPE A Negative For Type A (NEGATIVE); INFLUENZA TYPE B Negative For Type B (NEGATIVE)
[2024-07-12 10:31] LABS: B-TYPE NATRIURETIC PEPTIDE 18 pg/mL (0-100)
[2024-07-12] MEDS: 0.9%NACL 1000ML 1,000 ML IV ONE (10:32)
[2024-07-12] MEDS: ondanSETRON 4MG INJ IVP ONE (10:33)
[2024-07-12] MEDS: ondanSETRON 4MG INJ ONE (10:33)
--- NOTE | 2024-07-12 11:01 | ERN ---
General Chief Complaint: Syncope Stated Complaint: DIZZY, NAUSEA Time Seen by MD: 09:33 Source: patient History of Present Illness Initial Comments Patient is a 78-year-old female coming in to be evaluated for nauseousness and dizziness. Per patient she has been having these symptoms for two days. She was here for further evaluation. No fever or chills no nausea no vomiting no headache. Allergies: Coded Allergies: No Allergy Information Available (Verified Allergy, Unknown, 02/26/19) No Known Drug Allergies (Unverified Allergy, Unknown, 05/11/23) Home Meds Active Scripts Metoprolol Tartrate (Lopressor) 25 Mg Tab, 25 MG PO BID for 30 Days, #60 TAB Prov:MAURO LUO Jr., MD 03/05/19 Aspirin (ASPIRIN 81 MG ECTAB) 81 Mg Ectab, 81 MG PO DAILY for 30 Days, #30 TAB.EC Prov:MAURO LUO Jr., MD 03/05/19 Reported Medications Rosuvastatin Calcium (Rosuvastatin Calcium) 40 Mg Tablet, 40 MG PO HS, TAB 05/11/23 Amlodipine Besylate (Amlodipine Besylate) 2.5 Mg Tablet, 2.5 MG PO AM, TAB 05/11/23 Past Medical History Past Medical History: High Cholesterol, Heart Disease Past Surgical History: CABG Social History Social History: Negative ROS Dictation CONSTITUTIONAL: No chills, no fever, no weakness, no diaphoresis, no malaise. HEAD/FACE: No signs of trauma. EENT: No eye pain, no blurred vision, no tearing, no double vision, no ear pain, no ear discharge, no nose pain, no nasal congestion, no throat pain, no throat swelling, no mouth pain. RESPIRATORY: No cough, no orthopnea, no SOB, no stridor, no wheezing. CARDIOVASCULAR: No chest pain, no edema, no palpitations, no syncope. GASTROINTESTINAL/ABDOMINAL: No abdominal pain, no constipation, no diarrhea, no nausea, no vomiting. GENITOURINARY: No abnormal discharge, no dysuria, no frequent urination, no hematuria. No complaints of pain in the genitals. MUSCULOSKELETAL: No back pain, no gout, no joint pain, no joint swelling, no muscle pain, no muscle stiffness, no neck pain. INTEGUMENTARY: No change in color, no change in hair/nails, no dryness, no lesion, no lumps, no rash. NEUROLOGICAL/PSYCH: No anxiety, not depressed, no emotional problem, no headache, no numbness, no pre-existing deficit, no history of seizures, no tremors, no weakness. HEMATOLOGIC/LYMPHATIC: Not anemic, no history of blood clots, no apparent blee ding, no bruising, glands not swollen. All Systems Negative, Except as Noted. Physical Exam Physical Exam Dictation VITAL SIGNS: Reviewed. GENERAL APPEARANCE: Alert, oriented x3, no acute distress, obese. HEAD AND FACE: Non-traumatic. EYES: PERRL, pink conjunctivas, eyelid no trauma, anterior chamber clear. EARS: Pinnas intact and no signs of trauma or erythema. Ear canals clear and no discharge. TMs no erythema. NOSE: No discharge, no bleeding. OROPHARYNX: Mouth normal, teeth no caries, tongue pink. Pharynx clear, no erythema. Tonsils no exudates, no abscesses noted. Mucous membrane moist. NECK: Supple, non-tender, no thyromegaly, no masses, no JVD, no bruits. BREAST: Deferred. CHEST: No tenderness, no crepitus, no paradoxical movement, no retractions. LUNGS: Clear, well-ventilated, symmetric, no rales, no wheezing, no rhonchi, no stridor, good breath sounds bilaterally. HEART: Regular rate, regular rhythm, no murmur, no gallops. VASCULAR: No peripheral edema. ABDOMEN: Soft, positive bowel sounds, nondistended, no guarding, nontender, no rebound, no masses no hepatomegaly, no splenomegaly, no Miranda's sign, no hernias. RECTAL: Deferred. GENITAL: Deferred. NEUROLOGICAL: Normal speech, gross motor function intact, gross sensory function intact. MUSCULOSKELETAL: Neck nontender, full range of motion, back nontender, full range of motion. EXTREMITIES: Nontender, full range of motion. SKIN: Color pink, dry, no turgor, no rash, no lacerations, no abrasions, no contusions. LYMPHATICS: Deferred. Results Laboratory and Microbiology Lab and Micro Result Laboratory Tests Test 07/12/24 09:40 07/12/24 09:52 07/12/24 10:00 Urine Color YELLOW (YELLOW) Urine Appearance CLOUDY (CLEAR) H Urine pH 6.0 (5.0-8.0) Urine Specific [place] 1.026 (1.001-1.031) Urine Protein 70 mg/dL (NEGATIVE) H Urine Glucose (UA) NEGATIVE mg/dL (NEGATIVE) Urine Ketones NEGATIVE mg/dL (NEGATIVE) Urine Occult Blood NEGATIVE (NEGATIVE) Urine Nitrate NEGATIVE (NEGATIVE) Urine Bilirubin NEGATIVE mg/dL (NEGATIVE) Urine Urobilinogen 0.2 mg/dL (0.2-1.0) Urine Leukocyte Esterase 500 Bryanna/uL (NEGATIVE) H Urine RBC 2-5 /HPF (0-1) H Urine WBC 26-50 /HPF (0-1) H Urine Squamous Epithelial Cells MANY /HPF (0-2) Urine Non-Squamous Epithelial Cells 2 /HPF (0-2) Urine Bacteria RARE /HPF (None Seen) White Blood Count 12.4 K/uL (4.8-10.8) H Red Blood Count 4.34 MIL/uL (4.00-5.50) Hemoglobin 13.8 g/dL (12.0-16.0) Hematocrit 41.9 % (36-48) Mean Corpuscular Volume 96.5 fL (79-99) Mean Corpuscular Hemoglobin 31.8 pg (27.0-33.0) Mean Corpuscular Hemoglobin Concent 32.9 g/dL (32.0-36.0) Red Cell Distribution Width 12.4 % (11.0-15.5) Platelet Count 225 K/uL (130-400) Mean Platelet Volume 10.9 fL (7.5-10.5) H Immature Granulocyte % (Auto) 0.3 % (0-1) Neutrophils (%) (Auto) 55.7 % (40.0-77.0) Lymphocytes (%) (Auto) 36.1 % (21.0-51.0) Monocytes (%) (Auto) 5.5 % (3.0-13.0) Eosinophils (%) (Auto) 1.9 % (0.0-8.0) Basophils (%) (Auto) 0.5 % (0.0-5.0) Neutrophils # (Auto) 6.9 K/uL (1.8-7.7) Lymphocytes # (Auto) 4.5 K/uL (1.0-4.8) Monocytes # (Auto) 0.7 K/uL (0.1-1.0) Eosinophils # (Auto) 0.24 K/uL (0.00-0.70) Basophils # (Auto) 0.06 K/uL (0.00-0.20) Absolute Immature Granulocyte (auto 0.04 K/uL (0-1) Nucleated Red Blood Cells 0.0 % (0.0-0.19) Prothrombin Time 10.1 SEC (9.6-11.6) Prothromb Time International Ratio 0.95 (0.85-1.15) Activated Partial Thromboplast Time 21.7 SEC (26.3-35.5) L Sodium Level 140 mmol/L (136-145) Potassium Level 3.9 mmol/L (3.5-5.1) Chloride Level 104 mmol/L (101-111) Carbon Dioxide Level 31 mmol/L (21-32) Blood Urea Nitrogen 13 mg/dL (7-18) Creatinine 0.7 mg/dL (0.5-1.0) Glomerular Filtration Rate Calc 90 mL/min (>90) Random Glucose 127 mg/dL (70-105) H Total Calcium 10.0 mg/dL (8.5-10.1) Magnesium Level 2.20 mg/dL (1.80-2.40) Total Creatine Kinase 91 U/L (21-232) # Troponin I High Sensitivity < 4 ng/L (4-50) L B-Type Natriuretic Peptide 18 pg/mL (0-100) Influenza Type A Antigen Negative For Type A Influenza Type B Antigen Negative For Type B SARS-CoV-2, RNA, NAAT NEGATIVE SARS CoV-2 Group A Streptococcus Rapid negative (NEGATIVE) Labs Reviewed?: Yes EKG/XRAY/US/CT/MRI EKG Comment 07/12/2024 time 9:52 a.m. Ventricular rate 79 Sinus rhythm [place] [address] wave elevation or depression X-RAY Comment [place] [id number] [address] IMAGING REPORT Signed PATIENT: FRANK MACKENZIE MR#: [id number] : 1945 SEX: F AGE: 78 LOCATION: [facility] ORDER [id number] STATUS: REG ER REPORT#: [id number] SERVICE REASON: CP ORDERING PHYSICIAN: HOLLY RAMOS MD PROCEDURE: CXR1VW - CHEST 1VW PORTABLE CHEST RADIOGRAPH INDICATION: CP COMPARISON: 05/11/2023 FINDINGS: Median sternotomy wires are in appropriate alignment. Heart size is normal. Mild calcific plaque is present along the aortic arch chavarria. The pulmonary vascularity and laly appear normal. No abnormal pulmonary parenchymal opacity or consolidation identified. No significant pleural effusion noted. No pneumothorax detected. IMPRESSION: No radiographic evidence for any acute cardiopulmonary process. DICTATED BY: JOSE LOVE MD DATE: 07/12/24 0958 ELECTRONICALLY SIGNED BY: JOSE LOVE MD DATE: 07/12/24 1001 MDM MDM: Differential diagnosis: Dehydration, UTI, Patient is a 78-year-old female coming in to be evaluated for weakness. Has a workup positive for urinary tract infection. Patient will be discharged in stable condition after receiving a L of fluids patient states she feels much better. ED Course Orders Procedure Category Date Status Time Cbc With Differential LAB 07/12/24 Complete 09:35 Prothrombin Time With LAB 07/12/24 Complete INR 09:35 B-Type Natriuretic LAB 07/12/24 Complete Peptide 09:35 Chest 1vw RAD 07/12/24 Resulted 09:35 12 Lead Ekg Tracing- EKG 07/12/24 Complete Technical 09:35 0.9%Nacl 1000ml (Ns PHA 07/12/24 Complete 1000ml) 10:00 Magnesium LAB 07/12/24 Complete 09:35 Creatine Kinase, Total LAB 07/12/24 Complete 09:35 Troponin I High LAB 07/12/24 Complete Sensitivity 09:35 Urinalysis Profile LAB 07/12/24 Complete 09:35 Partial LAB 07/12/24 Complete Thromboplastin Time 09:35 Basic Metabolic Panel LAB 07/12/24 Complete 09:35 Covid Rna Naat LAB 07/12/24 Complete 09:36 Influenza Type A & B, LAB 07/12/24 Complete Rapid 09:36 Rapid (Group A Strep) LAB 07/12/24 Complete 09:36 Culture Urine LEATHA 07/12/24 In Process 09:55 Ondansetron 4mg Inj PHA 07/12/24 Complete (Zofran 4mg Inj) 10:30 Ondansetron 4mg Inj PHA 07/12/24 Complete (Zofran 4mg Inj) 10:14 Ceftriaxone 1g Vial PHA 07/12/24 Complete (Rocephine 1g Inj) 12:00 Ceftriaxone 1g Vial PHA 07/12/24 Complete (Rocephine 1g Inj) 11:53 Current Medications Medications (Trade) Dose Ordered Sig/Polo Route PRN Reason Start Time Stop Time Status Last Admin Dose Admin Ceftriaxone Sodium (ROCEphine 1G INJ) 1 gm ONCE ONCE IVPB 07/12/24 12:00 07/12/24 11:55 DC Ceftriaxone Sodium (ROCEphine 1G INJ) 1 gm STK-MED ONCE .ROUTE 07/12/24 11:53 07/12/24 11:54 DC Ondansetron HCl (zoFRAN 4MG INJ) 4 mg ONCE ONCE IVP 07/12/24 10:30 07/12/24 10:31 DC 07/12/24 10:33 Ondansetron HCl (zoFRAN 4MG INJ) 4 mg STK-MED ONCE .ROUTE 07/12/24 10:14 07/12/24 10:15 DC Sodium Chloride 1,000 ml @ 0 mls/hr ONCE ONCE IV 07/12/24 10:00 07/12/24 10:01 DC 07/12/24 10:32 Vital Signs Date Time Temp Pulse Resp B/P (MAP) Pulse Ox O2 Delivery O2 Flow Rate FiO2 07/12/24 10:36 68 14 136/64 99 Room Air* 0 21 07/12/24 09:34 98.8 85 18 157/73 99 Room Air 0 DX & DISP Disposition: Discharge Departure Impression: Primary Impression: UTI (urinary tract infection) Additional Impression: Dehydration Condition: Stable Scripts Cephalexin Monohydrate (Keflex) 500 Mg Cap 1 CAP PO BID for 10 Days, #20 CAP 0 Refills Prov: HOLLY RAMOS MD 07/12/24 Additional Instructions: FOLLOW-UP WITH PRIMARY CARE PROVIDER IN 1 TO 2 DAYS. TAKE MEDICATIONS DIRECTED HERE IN THE EMERGENCY ROOM. OKAY TO CONTINUE HOME MEDICATIONS UNLESS OTHERWISE DISCUSSED DURING YOUR VISIT IN THE EMERGENCY ROOM TODAY. RETURN TO YOUR NEAREST EMERGENCY ROOM IF SYMPTOMS WORSEN OR IF THERE IS NO IMPROVEMENT. CALL 911 IF YOU NEED IMMEDIATE ASSISTANCE. TAKE TYLENOL [id number] NEEDED AND IF NO CONTRAINDICATIONS ARE PRESENT. INCREASE ORAL HYDRATION. A WOUND CULTURE OR URINE CULTURE WAS ORDERED HERE IN THE EMERGENCY ROOM DEPARTMENT PLEASE FOLLOW-UP WITH PRIMARY CARE PROVIDER AND ADVISE THEM TO GET REPEAT PORTS FROM OUR FACILITY. IF YOU HAD ANY YAEL WRAP/SPLINTS THAT WERE APPLIED HERE, PLEASE DO NOT REMOVE THEM UNTIL YOU SEE YOUR PRIMARY CARE OR SPECIALTY. Referrals: Referrals: MALLORY SOW DO (PCP) Time of Disposition: 12:05 HOLLY RAMOS MD Jul 12, 2024 11:01
[2024-07-12] MEDS ORDERED: cefTRIAXone 1G VIAL IVPB ONE (12:00)
[2024-07-12] MEDS ORDERED: CEPH500B PO (12:06)
[2024-07-12] MEDS: cefTRIAXone 1G VIAL ONE (12:17)
[2024-07-12 12:18] VITALS: BP 126/70; PULSE 74; RESP 12; O2SAT 97
== END 2024-07-12 12:25 | disposition home or self-care (01) ==
LOC: EDH 09:30
DX: N39.0 Urinary tract infection, site not specified (principal); E86.0 Dehydration; E78.00 Pure hypercholesterolemia, unspecified; Z79.82 Long term (current) use of aspirin; Z79.899 Other long term (current) drug therapy; Z95.1 Presence of aortocoronary bypass graft; Z20.822 Contact with and (suspected) exposure to COVID-19
CPT/HCPCS: 99285; 96374; 71045; 87635; 96361; 96375; 82550; 83735; 84484; 80048; 83880; 85025; 85610; 85730; 87086 ×2; 87186; 87880; 87804 ×2; 81001; 36415; 93005; J7030; J0696; J2405